=== PATIENT | female | born 1970 | race Hispanic/Latino ===

== ENCOUNTER → 2021-11-26 | Outpatient (CLI) | payer MEDICARE | END | disposition home or self-care (01) | LOC: RAH 15:15 | PROVIDERS: ATTEND Internal Medicine | DX: E04.1 Nontoxic single thyroid nodule (principal) | CPT/HCPCS: 76536 ==

== ENCOUNTER → 2022-03-05 | Outpatient (CLI) | payer MEDICARE ==
[~2022-03-05] MED LIST: LIDOCAINE HCL 1% 10 ML VIAL ONE
[2022-03-05 09:26] LABS: INR 0.94 (0.85-1.15); PROTHROMBIN TIME 10.3 SEC (9.6-11.6)
== END | disposition home or self-care (01) ==
LOC: RAH 08:13
PROVIDERS: ATTEND Internal Medicine
DX: E04.2 Nontoxic multinodular goiter (principal); Z79.01 Long term (current) use of anticoagulants
CPT/HCPCS: 10005; 85610; 85730; 36415; 88173; 88305; 10006; J3490 ×2; 76942

== ENCOUNTER 2023-02-02 07:03 | Day surgery (SDC) | payer MEDICARE ==
[2023-01-28 10:30] LABS: HEMATOCRIT 36.8 % (36-48); MEAN CORPUSCULAR HEMOGLOBIN 29.7 pg (27.0-33.0); MEAN CORPUSCULAR HGB CONC 30.7 g/dL (32.0-36.0); MEAN CORPUSCULAR VOLUME 96.6 fL (79-99); PLATELET COUNT (AUTO) 129 K/uL (130-400); RED BLOOD CELL COUNT(AUTO) 3.81 MIL/uL (4.00-5.50); RED CELL DISTRIBUTION WIDTH 15.4 % (11.0-15.5); WHITE BLOOD COUNT (AUTO) 9.3 K/uL (4.8-10.8)
[2023-01-28 10:44] LABS: INR 0.93 (0.85-1.15); PROTHROMBIN TIME 9.9 SEC (9.6-11.6)
[2023-01-28 10:45] LABS: PARTIAL THROMBOPLASTIN TIME 25.7 SEC (26.3-35.5)
[2023-01-28 11:26] VITALS: BP 137/62; PULSE 78; RESP 21
[2023-01-28 11:54] LABS: ALBUMIN 3.6 g/dL (3.5-5.0); BILIRUBIN,TOTAL 0.7 mg/dL (0.2-1.0); CREATININE 2.1 mg/dL (0.5-1.5); POTASSIUM 3.9 mmol/L (3.5-5.1); TOTAL PROTEIN, SERUM 6.9 g/dL (6.0-8.3)
[2023-01-28 11:58] LABS: EOSINOPHILS % (MANUAL) 1 % (1-6); LYMPHOCYTES % (MANUAL) 27 % (22-44); MONOCYTES % (MANUAL) 6 % (2-9); SEGMENTED NEUTROPHILS % 66 % (40-70); TOTAL CELLS COUNTED 100
[2023-01-28 11:59] LABS: MAN.DIFF COMMENT-IMPRESSION MANUAL DIFFERENTIAL; PLATELET MORPHOLOGY COMMENT SLIGHTLY DECREASED
[~2023-02-02] VITALS: Ht 152.4 cm; Wt 68.7 kg
[2023-02-02] VITALS (18 sets, daily range): BP systolic 100–134; BP diastolic 45–75; PULSE 70–86; RESP 15–22
[~2023-02-02 07:03] MED LIST changes: +AMLO-258 PO; +FERR-72 PO; +FLUT1BLS3 IH; +FOLI1TAB85 PO; -LIDOCAINE HCL 1% 10 ML VIAL ONE; +METH-386 PO; +OMEP40CA21 PO; +PRED-904 PO; +SODI650T PO; +VITAMIN D PO
[2023-02-02] MEDS ORDERED: 0.9% NACL 500ML IV.SOLN 500 ML IV ONE (07:58)
[2023-02-02] MEDS ORDERED: CEFAZOLIN SODIUM 2 GM VIAL ONE (07:58)
[2023-02-02 08:16] LABS: CREATININE 6.5 mg/dL (0.5-1.5); POTASSIUM 3.2 mmol/L (3.5-5.1)
[2023-02-02] MEDS ORDERED: LIDOCAINE PF 100MG/5ML (2%) SYRINGE 5ML ONE (12:26)
[2023-02-02] MEDS ORDERED: DEXAMETHASONE SOD PHOSPHATE 10MG/ML 1ML VIAL ONE (12:26)
[2023-02-02] MEDS ORDERED: SUCCINYLCHOLINE CHLORIDE 20 MG/ML 10 ML VIAL ONE (12:26)
[2023-02-02] MEDS ORDERED: MIDAZOLAM HCL 1 MG/ML 2ML VIAL ONE (12:26)
[2023-02-02] MEDS ORDERED: NEOSTIGMINE 5MG/5ML SYR IV ONE (12:27)
[2023-02-02] MEDS ORDERED: PROPOFOL 10 MG/ML 20ML VIAL IV ONE (12:27)
[2023-02-02] MEDS ORDERED: FENTANYL CITRATE PF 50 MCG/1 ML 2ML VIAL ONE (12:27)
[2023-02-02] MEDS ORDERED: GLYCOPYRROLATE 1 MG/5 ML SYRINGE ONE (12:27)
[2023-02-02] MEDS ORDERED: ROCURONIUM 10MG/1ML SYR 10 MG/ML ML ONE (12:27)
[2023-02-02] MEDS ORDERED: ONDANSETRON 4MG INJ ONE (12:27)
[2023-02-02] MEDS ORDERED: BUPIVACAINE/PF 0.25% 30ML VIAL IJ ONE (12:45)
[2023-02-02] MEDS ORDERED: LIDOCAINE HCL 1% 20 ML VIAL ONE (12:45)
[2023-02-02] MEDS ORDERED: BUPIVACAINE/PF 0.5% 30ML VIAL INJ ONE (13:06)
[2023-02-02] MEDS ORDERED: EPHEDRINE SULFATE 50 MG/ML AMPULE ONE (13:16)
[2023-02-02] MEDS ORDERED: SUGAMMADEX SODIUM 200 MG/2 ML VIAL IV ONE (13:51)
[2023-02-02] MEDS ORDERED: AEC81 PO (15:27)
== END 2023-02-02 16:20 | disposition home or self-care (01) ==
LOC: DAH 07:03
PROVIDERS: ATTEND Student in an Organized Health Care Education/Training Program
DX: I12.0 Hypertensive chronic kidney disease with stage 5 chronic kidney disease or end stage renal disease (principal); Z20.822 Contact with and (suspected) exposure to COVID-19; N18.6 End stage renal disease; Z90.49 Acquired absence of other specified parts of digestive tract; Z90.710 Acquired absence of both cervix and uterus; Z98.51 Tubal ligation status; Z98.890 Other specified postprocedural states; Z88.8 Allergy status to other drugs, medicaments and biological substances
CPT/HCPCS: 80053; 85025; 85610; 85730; 86850 ×2; 86900 ×2; 86901 ×2; 36415 ×2; 71045; 36821; 80048; A6260; A4663; J7040; J3010; J3490 ×4; J1100; J2710; J0330; J2001; J2250; J2704; J2405; J1644; J0690; A4649 ×2; C1713 ×2; A4215; A4223; A4222; A4221; A4600; G0168

== ENCOUNTER 2023-07-13 07:12 | Day surgery (SDC) | payer MEDICARE ==
[2023-07-08 10:10] VITALS: BP 175/90; PULSE 65; RESP 19
[2023-07-08 10:11] LABS: BASOPHILS # (AUTO) 0.06 K/uL (0.00-0.20); BASOPHILS % (AUTO) 0.9 % (0.0-5.0); EOSINOPHILS # (AUTO) 0.14 K/uL (0.00-0.70); EOSINOPHILS % (AUTO) 2.1 % (0.0-8.0); IMMATURE GRANULOCYTE ABSOLUTE 0.03 K/uL (0-1); LYMPHOCYTES # (AUTO) 1.5 K/uL (1.0-4.8); MEAN CORPUSCULAR HGB CONC 32.4 g/dL (32.0-36.0); MEAN CORPUSCULAR VOLUME 98.8 fL (79-99); MONOCYTES # (AUTO) 0.6 K/uL (0.1-1.0); MONOCYTES % (AUTO) 8.5 % (3.0-13.0); NEUTROPHILS # (AUTO) 4.4 K/uL (1.8-7.7); PLATELET COUNT (AUTO) 157 K/uL (130-400); RED BLOOD CELL COUNT(AUTO) 3.44 MIL/uL (4.00-5.50); RED CELL DISTRIBUTION WIDTH 13.6 % (11.0-15.5); WHITE BLOOD COUNT (AUTO) 6.6 K/uL (4.8-10.8)
[2023-07-08 10:25] LABS: INR <= 0.93 (0.85-1.15); PROTHROMBIN TIME 10.2 SEC (9.6-11.6)
[2023-07-08 10:26] LABS: PARTIAL THROMBOPLASTIN TIME 28.9 SEC (26.3-35.5)
[2023-07-08 10:28] LABS: ALBUMIN 3.7 g/dL (3.5-5.0); BILIRUBIN,TOTAL 0.3 mg/dL (0.2-1.0); CREATININE 5.5 mg/dL (0.5-1.5); POTASSIUM 3.6 mmol/L (3.5-5.1); TOTAL PROTEIN, SERUM 6.9 g/dL (6.0-8.3)
[2023-07-13] VITALS (16 sets, daily range): BP systolic 113–146; BP diastolic 52–74; PULSE 51–72; RESP 13–20
[~2023-07-13] VITALS: Ht 152.4 cm; Wt 67.5 kg
[~2023-07-13 07:12] MED LIST changes: +ALBU18HF7 IH; +ATOR40TA69 PO; +BENZ-226 PO; +CHOL100040 PO; +ERGO500093 PO; -FOLI1TAB85 PO; +MAGN250T10 PO; +MONT-39 PO; -OMEP40CA21 PO; +ONDA4TAB10 PO; +THEO400T3 PO; -VITAMIN D PO
[2023-07-13 08:50] LABS: CREATININE 5.2 mg/dL (0.5-1.5); POTASSIUM 3.5 mmol/L (3.5-5.1)
[2023-07-13] MEDS: 0.9% NACL 500ML IV.SOLN 500 ML IV ONE (10:00)
[2023-07-13] MEDS ORDERED: ONDANSETRON 4MG INJ ONE (12:29)
[2023-07-13] MEDS ORDERED: MIDAZOLAM HCL 1 MG/ML 2ML VIAL ONE (12:29)
[2023-07-13] MEDS ORDERED: FENTANYL CITRATE PF 50 MCG/1 ML 2ML VIAL ONE ×2 (12:29→14:44)
[2023-07-13] MEDS ORDERED: PROPOFOL 10 MG/ML 20ML VIAL IV ONE ×2 (12:29→14:44)
[2023-07-13] MEDS ORDERED: ROCURONIUM BROMIDE 10MG/1ML 5ML VL ONE (12:48)
[2023-07-13] MEDS: CEFAZOLIN SODIUM 2 GM VIAL ONE (13:07)
[2023-07-13] MEDS ORDERED: ATROPINE 1MG SYG IVP ONE (13:48)
[2023-07-13] MEDS ORDERED: GLYCOPYRROLATE 0.2 MG/ML 5 ML VIAL ONE (14:12)
[2023-07-13] MEDS ORDERED: NEOSTIGMINE METHYLSULFATE 1MG/ML IV ONE (14:13)
[2023-07-13] MEDS ORDERED: SUGAMMADEX SODIUM 200 MG/2 ML VIAL IV ONE (14:38)
== END 2023-07-13 17:02 | disposition home or self-care (01) ==
LOC: DAH 07:12
PROVIDERS: ATTEND Student in an Organized Health Care Education/Training Program
DX: I12.0 Hypertensive chronic kidney disease with stage 5 chronic kidney disease or end stage renal disease (principal); N18.6 End stage renal disease; I25.10 Atherosclerotic heart disease of native coronary artery without angina pectoris; Z79.01 Long term (current) use of anticoagulants; Z79.899 Other long term (current) drug therapy; Z90.49 Acquired absence of other specified parts of digestive tract; Z98.890 Other specified postprocedural states; Z98.51 Tubal ligation status; Z90.710 Acquired absence of both cervix and uterus; Z99.2 Dependence on renal dialysis
CPT/HCPCS: 80053; 84703; 85025; 85610; 85730; 86850 ×2; 86900 ×2; 86901 ×2; 36415 ×2; 36830; 64417; 80048; A6260; A4649 ×2; C1768; J7040; J3010 ×2; J3490 ×2; J0461; J2250; J2704 ×2; J2405; J2710; J1644; J0690; C1713 ×2; A4215; A4213; A4222; A4221; A4663; A4216; A4223 ×2; A4600; G0168